=== PATIENT | female | born 1960 | race Caucasian/White ===

== ENCOUNTER 2018-02-06 16:10 | Observation (INO) ==
[2018-02-06] MEDS ORDERED: *HR* FentaNYL (PF) 100 MCG/2 ML VIAL IVP ONE ×2 (17:00→19:34)
[2018-02-06] MEDS ORDERED: Isovue-370 500 ML INFUS..BTL IV ONE (17:12)
[2018-02-06] MEDS ORDERED: 0.9 % Sodium Chloride 1,000 ML IVC ONE (17:13)
--- NOTE | 2018-02-06 17:18 | Emergency Department Note ---
Disposition Clinical Impression: Abdominal pain Qualifiers: Abdominal location: generalized Qualified Code(s): R10.84 - Generalized abdominal pain Disposition: Admitted As Inpatient Condition: Good Referrals: Paddy Estrada CNP [Primary Care Provider] - Abad Farrell MD [Family Provider] - Forms: ED Satisfaction Letter, Work/School Release Abdominal Pain HPI - General Chief Complaint: ED Abdominal Pain Stated Complaint: Colonoscopy this am in pain Time Seen by Provider: 02/06/18 16:43 Source: patient Mode of arrival: private vehicle Limitations: no limitations Nursing Notes Reviewed: Yes Vital Signs Reviewed: Yes - History of Present Illness HPI Narrative: 57-year-old female presents to the ER status post colonoscopy. Patient states that this morning she had a outpatient colonoscopy where they removed a few polyps. She states she went home around 11 AM she started having lower abdominal pain. Reports it is been constant ever since onset. She denies any fevers nausea vomiting or diarrhea. No dysuria or hematuria. Reports a past surgical history of a hysterectomy. She is not on any blood thinning medications. No other complaints. Pt Subjective Complaint: abdominal pain Onset (ago): hour(s) Consistency: constant Location: diffuse Pain Severity: severe Pain Scale: 8 Quality: stabbing Radiation: none Migration to: no migration Improves with: nothing Worsens with: nothing Context: recent surgery/procedure Associated symptoms: Reports: denies other symptoms Treatments prior to arrival: none - Related Data Home Medications Medication Instructions Recorded Confirmed Amitriptyline HCl 100 mg PO HS 02/06/18 02/06/18 Gabapentin [Neurontin] 1,200 mg PO HS 02/06/18 02/06/18 Gabapentin [Neurontin] 600 mg PO BID 02/06/18 02/06/18 Lisinopril [Zestril] 20 mg PO DAILY 02/06/18 02/06/18 Omeprazole [PriLOSEC] 40 mg PO DAILY 02/06/18 02/06/18 Tizanidine HCl 4 mg PO BID PRN 02/06/18 02/06/18 Allergies Allergy/AdvReac Type Severity Reaction Status Date / Time Penicillins Allergy Anaphylaxis Verified 07/12/17 12:22 All systems ED: reviewed and negative except as stated. Constitutional: Denies: fever Gastrointestinal: Reports: abdominal pain. Denies: nausea, vomiting, diarrhea Genitourinary: Denies: dysuria, hematuria Abdominal Pain PMH - Past Medical History Medical history: Reports: cancer, hypertension, TIA Psychiatric history: Reports: no psych history - Social History Smoking status: Current every day smoker Alcohol use: Reports: none Physical Exam - General Limitations: no limitations General appearance: alert, in no apparent distress - Head Head exam: atraumatic, normocephalic - Eye Eye exam: Present: normal appearance - ENT ENT exam: normal exam - Neck Neck exam: Present: normal inspection - Chest Chest inspection: Present: normal inspection, symmetric chest wall rise - Respiratory Respiratory exam: Present: normal lung sounds bilaterally - Cardiovascular Cardiovascular exam: Present: regular rate, normal rhythm, normal heart sounds - Abdominal Exam Abdominal exam: Present: tenderness (Diffuse tenderness. Voluntary guarding), guarding (Voluntary) - Extremities Exam Extremities exam: Present: normal inspection, full ROM - Expanded Upper Extremity Exam Shoulder exam: Present: normal inspection, full ROM Arm exam: Present: normal inspection, full ROM Elbow exam: Present: normal inspection, full ROM Forearm/Wrist exam: Present: normal inspection, full ROM Hand exam: Present: normal inspection, full ROM - Expanded Lower Extremity Exam Hip/Pelvis exam: Present: normal inspection, full ROM Upper leg exam: Present: normal inspection, full ROM Knee exam: Present: normal inspection, full ROM Lower leg exam: Present: normal inspection, full ROM Ankle exam: Present: normal inspection, full ROM Foot/toe exam: Present: normal inspection, full ROM - Skin Skin exam: Present: warm, dry Course Course Narrative: Patient seen and examined. Low-grade temp. Voluntary guarding on exam. Concern for perforation given her recent attention mentation. Plan for CT as well as labs. Cipro and Flagyl for antibiotics and fentanyl for pain. - Reevaluation(s) Reevaluation #1: Discussed imaging labs with the patient and family present. Patient agreeable with plan. Vital Signs Temperature 99.9 F H 02/06/18 16:16 Pulse Rate 86 02/06/18 16:16 Respiratory Rate 16 02/06/18 16:16 Blood Pressure 135/77 02/06/18 16:16 O2 Sat by Pulse Oximetry 95 02/06/18 16:16 Temperature 99.9 F H 02/06/18 16:16 Pulse Rate 80 02/06/18 19:26 Respiratory Rate 16 02/06/18 19:26 Blood Pressure 154/89 02/06/18 19:26 O2 Sat by Pulse Oximetry 95 02/06/18 19:26 Oxygen Delivery Oxygen Delivery Room Air Abdominal Pain - MDM Narrative Medical decision making narrative: 57-year-old female presents with abdominal pain after recent colonoscopy this morning. CT scan obtained demonstrating no findings of pneumoperitoneum as per radiology read. Evaluated by gastroenterology in the Department who recommended admission for observation. She is to be kept nothing by mouth and treated with Cipro and Flagyl. Admitted to the hospitalist service with gastrology consultation. - Lab Data Lab results reviewed: Yes I reviewed the patient's lab results. Result diagrams: 02/06/18 17:22 02/06/18 17:22 Lab Results 02/06/18 02/06/18 02/06/18 Range/Units 17:22 17:22 17:22 WBC 13.2 H (4.3-11.1) K/mcL RBC 5.31 H (3.82-4.97) M/mcL Hgb 15.3 (11.5-15.4) g/dL Hct 45.4 H (35.3-44.9) % MCV 85.5 (83.0-100.0) fL MCH 28.8 (28.0-33.3) pg MCHC 33.7 (31.6-35.5) g/dL RDW 14.5 (11.5-14.5) % Plt Count 244 (140-400) K/mcL MPV 9.4 (9.4-12.4) fL Immature Gran % 0.3 (0-4) % Seg Neutrophils % 74.6 % Lymphocytes % 20.4 % Monocytes % 4.0 % Eosinophils % 0.5 % Basophils % 0.2 % Neutrophils # 9.9 H (1.6-8.9) K/mcL Lymphocytes # 2.7 (0.6-4.6) K/mcL Monocytes # 0.5 (0.0-1.3) K/mcL Eosinophils # 0.1 (0.0-0.6) K/mcL Basophils # 0.0 (0.0-0.2) K/mcL PT 12.4 H (9.4-12.1) Seconds INR 1.1 Sodium 139 (136-145) mEq/L Potassium 3.5 (3.5-5.1) mEq/L Chloride 107 (98-107) mEq/L Carbon Dioxide 26 (23-29) mEq/L BUN 10 (6-20) mg/dL Creatinine 0.74 (0.60-1.20) mg/dL Est GFR ( Amer) > 60 (> 60) Est GFR (Non-Af Amer) > 60 (> 60) BUN/Creatinine Ratio 14 (6-26) Glucose 96 (70-105) mg/dL Calculated Osmolality 287 (280-300) Calcium 9.8 (8.6-10.3) mg/dL Total Bilirubin 0.5 (0.3-1.0) mg/dL Direct Bilirubin 0.1 (0.0-0.2) mg/dL Indirect Bilirubin 0.4 (0.0-1.2) mg/dL AST 13 (13-39) Units/L ALT 13 (7-52) Units/L Alkaline Phosphatase 83 (34-104) Units/L Serum Total Protein 7.0 (6.4-8.9) g/dL Albumin 4.2 (3.5-5.7) g/dL Globulin 2.8 (2.4-3.5) g/dL Albumin/Globulin Ratio 1.5 (1.1-2.2) Lipase 21 (11-82) Units/L Urine Color (Yellow) Urine Clarity (Clear) Urine pH (5.0-8.0) pH Units Ur Specific [place] (1.010-1.025) Urine Protein (Neg-Trace) mg/dL Urine Glucose (UA) (Normal) mg/dL Urine Ketones (Negative) mg/dL Urine Blood (Negative) Urine Nitrite (Negative) Urine Bilirubin (Negative) Urine Urobilinogen (Normal) mg/dL Ur Leukocyte Esterase (Negative) Urine Microscopic RBC (0-3) per hpf Urine Microscopic WBC (0-3) per hpf Ur Squamous Epith Cells (None-Few) per lpf Urine Bacteria (None-Few) per hpf Hyaline Casts (None-Few) per lpf Ur Culture Indicated? (NO) 02/06/18 Range/Units 19:04 WBC (4.3-11.1) K/mcL RBC (3.82-4.97) M/mcL Hgb (11.5-15.4) g/dL Hct (35.3-44.9) % MCV (83.0-100.0) fL MCH (28.0-33.3) pg MCHC (31.6-35.5) g/dL RDW (11.5-14.5) % Plt Count (140-400) K/mcL MPV (9.4-12.4) fL Immature Gran % (0-4) % Seg Neutrophils % % Lymphocytes % % Monocytes % % Eosinophils % % Basophils % % Neutrophils # (1.6-8.9) K/mcL Lymphocytes # (0.6-4.6) K/mcL Monocytes # (0.0-1.3) K/mcL Eosinophils # (0.0-0.6) K/mcL Basophils # (0.0-0.2) K/mcL PT (9.4-12.1) Seconds INR Sodium (136-145) mEq/L Potassium (3.5-5.1) mEq/L Chloride (98-107) mEq/L Carbon Dioxide (23-29) mEq/L BUN (6-20) mg/dL Creatinine (0.60-1.20) mg/dL Est GFR ( Amer) (> 60) Est GFR (Non-Af Amer) (> 60) BUN/Creatinine Ratio (6-26) Glucose (70-105) mg/dL Calculated Osmolality (280-300) Calcium (8.6-10.3) mg/dL Total Bilirubin (0.3-1.0) mg/dL Direct Bilirubin (0.0-0.2) mg/dL Indirect Bilirubin (0.0-1.2) mg/dL AST (13-39) Units/L ALT (7-52) Units/L Alkaline Phosphatase (34-104) Units/L Serum Total Protein (6.4-8.9) g/dL Albumin (3.5-5.7) g/dL Globulin (2.4-3.5) g/dL Albumin/Globulin Ratio (1.1-2.2) Lipase (11-82) Units/L Urine Color Yellow (Yellow) Urine Clarity Clear (Clear) Urine pH 6.0 (5.0-8.0) pH Units Ur Specific [place] 1.024 (1.010-1.025) Urine Protein Negative (Neg-Trace) mg/dL Urine Glucose (UA) Normal (Normal) mg/dL Urine Ketones Negative (Negative) mg/dL Urine Blood Negative (Negative) Urine Nitrite Negative (Negative) Urine Bilirubin Negative (Negative) Urine Urobilinogen Normal (Normal) mg/dL Ur Leukocyte Esterase Trace H (Negative) Urine Microscopic RBC 0-3 (0-3) per hpf Urine Microscopic WBC 5-15 H (0-3) per hpf Ur Squamous Epith Cells Many H (None-Few) per lpf Urine Bacteria Few (None-Few) per hpf Hyaline Casts None Seen (None-Few) per lpf Ur Culture Indicated? NO. A (NO) - Radiology Data Radiology results reviewed: Yes I reviewed the patient's radiology results. Abdomen/Pelvis CT 02/06/18 17:12 IMPRESSION: 1.6 cm linear metallic foreign body within the cecum ; correlate with interventional history. No gross pneumoperitoneum. Patchy heterogeneous and ground-glass opacity at the lung bases, which can reflect atelectasis, pneumonitis, or edema. D/ / Eliel Honeycutt MD / Eliel Honeycutt MD Interpreting Provider: Eliel Honeycutt MD S.B.A.R. - S.B.A.R. Situation: Demographics, MOA Background: Presenting Complaint, Relevant PMH, Meds, & Allergies Assessment: Course and respsone to treatment, Exam Concerns, Patient/Family Expectation, Pertinant Lab Results Recommendation: Barrier(s) to disposition, Recommendation based on pending studies, treatments, or consults S.B.A.R. Report Given to: Dr. Eduardo
[2018-02-06 17:33] LABS: Basophils % 0.2 %; Eosinophils # 0.1 K/mcL (0.0-0.6); Eosinophils % 0.5 %; Hematocrit 45.4 % (35.3-44.9); Hemoglobin 15.3 g/dL (11.5-15.4); Immature Granulocytes % 0.3 % (0-4); Lymphocytes # 2.7 K/mcL (0.6-4.6); Lymphocytes % 20.4 %; Mean Corpuscular HGB Conc 33.7 g/dL (31.6-35.5); Mean Corpuscular Hemoglobin 28.8 pg (28.0-33.3); Mean Corpuscular Volume 85.5 fL (83.0-100.0); Mean Platelet Volume 9.4 fL (9.4-12.4); Monocytes # 0.5 K/mcL (0.0-1.3); Neutrophils # 9.9 K/mcL (1.6-8.9); Platelet Count 244 K/mcL (140-400); Red Blood Count 5.31 M/mcL (3.82-4.97); Red Cell Distribution Width 14.5 % (11.5-14.5); Segmented Neutrophils % 74.6 %
[2018-02-06 17:40] LABS: INR 1.1; Prothrombin Time 12.4 Seconds (9.4-12.1)
[2018-02-06 17:58] LABS: Alanine Aminotransferase 13 Units/L (7-52); Albumin 4.2 g/dL (3.5-5.7); Albumin/Globulin Ratio 1.5 (1.1-2.2); Alkaline Phosphatase 83 Units/L (34-104); Aspartate Amino Transferase 13 Units/L (13-39); BUN/Creatinine Ratio 14 (6-26); Bilirubin,Direct 0.1 mg/dL (0.0-0.2); Bilirubin,Indirect 0.4 mg/dL (0.0-1.2); Bilirubin,Total 0.5 mg/dL (0.3-1.0); Blood Urea Nitrogen 10 mg/dL (6-20); Calcium 9.8 mg/dL (8.6-10.3); Carbon Dioxide 26 mEq/L (23-29); Chloride 107 mEq/L (98-107); Globulin 2.8 g/dL (2.4-3.5); Glucose 96 mg/dL (70-105); Lipase 21 Units/L (11-82); Osmolality,Calculated 287 (280-300); Potassium 3.5 mEq/L (3.5-5.1); Sodium 139 mEq/L (136-145); eGFR For Non-African Americans > 60 (> 60)
[2018-02-06] MEDS ORDERED: MetroNIDAZOLE 500 MG/100 ML 500 MG/100 ML BAG IVPB ONE (18:07)
--- NOTE | 2018-02-06 18:59 | Event Note ---
Date of Encounter: 02/06/18 Time of Encounter: 18:45 Patient had a 12 mm cecal polyp removed this morning. After going home she started having lower abdominal pain so asked to come the ER. On examination does has significant tenderness in the lower abdomen. Per patient she is passing some flatus. White count is 13.2. She has a low-grade fever of 99.9. CT scan is negative for any free air. 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 Recommendation: Strict nothing by mouth. IV antibiotics including Cipro and Flagyl. Full consult to follow and will follow along the pt .
[2018-02-06 19:13] LABS: Bilirubin,Urine Negative (Negative); Blood,Urine Negative (Negative); Clarity,Urine Clear (Clear); Color,Urine Yellow (Yellow); Glucose,Urine (UA) Normal (Normal); Ketones,Urine Negative (Negative); Leukocyte Esterase,Urine Trace (Negative); Nitrite,Urine Negative (Negative); Protein,Urine Negative (Neg-Trace); Specific Gravity,Urine 1.024 (1.010-1.025); Urobilinogen,Urine Normal (Normal)
[2018-02-06 19:15] LABS: Bacteria,Urine Few per hpf (None-Few); Hyaline Casts,Urine None Seen per lpf (None-Few); RBC,Urine 0-3 per hpf (0-3); Squamous Epithelial Cell,Urine Many per lpf (None-Few)
[2018-02-06] MEDS ORDERED: Pantoprazole 40 MG VIAL IVP ONE (19:30)
--- NOTE | 2018-02-06 19:56 | Internal Med History&Physical ---
<Terry Esteban - Last Filed: 02/06/18 22:05> Date of Encounter: 02/06/18 Time of Encounter: 19:54 Internal Medicine - H&P: HPI Chief complaint: Abdominal pain Admitted From: Home History of present illness: Ms. Barney is a 57 year old female with a past medical history of chronic back pain, TIA, hypertension, GERD, and tobacco dependence who presented complaining of abdominal pain after an outpatient colonoscopy this morning. According to the endoscopy note, a 4 mm nonbleeding sessile polyp was found in the transverse colon and a 12 mm nonbleeding sessile polyp was found in the cecum, both of which were removed with a hot snare. One hemostatic clip was successfully placed in the cecum and there was no bleeding at the end of the procedure. The colonoscopy was performed without difficulty and the patient tolerated the procedure well. She was able to eat a sandwich without difficulty shortly after the procedure. She went home around 11 AM and started having constant, sharp right lower quadrant abdominal pain. Pain does not radiate, nothing makes it better, and abdominal palpation makes it worse. Patient reports she is unable to stand/walk secondary to pain. She called Dr. Bustillo regarding her symptoms recommended she be evaluated in the emergency department. Patient denies associated fever, chest pain, shortness of breath, nausea, vomiting, diarrhea, hematochezia, dysuria, hematuria, or home blood thinner use. Past Med Surg Social Fam HX - Past Medical History Medical history: cancer (Ovarian), hypertension, TIA Additional medical history: Chronic back pain, peripheral neuropathy Psychiatric history: no psych history - Past Surgical History Surgical History: hysterectomy, other Additional surgical history: back surgery - Social History Smoking Status: Current every day smoker Smokeless Tobacco Status: No Alcohol use: none Drug use: none Current living situation: Home, With Family Activity Level: Independent ambulation Recent Out of Country Travel Within the Last 8 Weeks: No Exposure or Possible Exposure to Illness During Travel: No - Family History Mother Living Status: Hx Family Cardiac Disorders: Yes (HTN, Brain aneurysm) Hx Family Endocrine Disorder: Yes (DM) Hx Family Medical Disorders: Yes (Polio) Father Living Status: Hx Family Cardiac Disorders: Yes ([place], CABG) Hx Family Cancer: Yes (Lung, Colon at age 50) Internal Medicine - H&P: Meds Gabapentin [Neurontin] 1,200 mg PO HS 02/06/18 [History] Gabapentin [Neurontin] 600 mg PO BID 02/06/18 [History] Omeprazole [PriLOSEC] 40 mg PO DAILY 02/06/18 [History] RX: Amitriptyline HCl 100 mg PO HS 02/06/18 [History] RX: Lisinopril [Zestril] 20 mg PO DAILY 02/06/18 [History] RX: Tizanidine HCl 4 mg PO BID PRN 02/06/18 [History] 3 Allergy/AdvReac Type Severity Reaction Status Date / Time Penicillins Allergy Anaphylaxis Verified 07/12/17 12:22 All Systems PM: A 10-system review of systems was performed and is negative for pertinent findings except as documented above in the HPI. - Constitutional Constitutional: chills, fever(s) (Low-grade), no fatigue, no malaise, no weakness, no weight gain, no weight loss - EENT Eyes: no blurry vision, no diplopia Nose, mouth and throat: no sinus pain, no sore throat - Cardiovascular Cardiovascular ROS IM: no chest pain, no dyspnea, no edema - Respiratory Respiratory: no cough, no hemoptysis, no dyspnea on exertion - Gastrointestinal Gastrointestinal: abdominal pain, no bloating, no constipation, no diarrhea, no heartburn, no hematemesis, no hematochezia, no melena, no nausea, no vomiting - Genitourinary Genitourinary: no dysuria, no hematuria, no urinary frequency, no urinary urgency - Musculoskeletal Musculoskeletal ROS IM: back pain (Chronic), no arthralgias, no numbness, no tingling - Integumentary Integumentary IM: no erythema, no new lesions, no rash - Neurological Neurological ROS: no confusion, no numbness, no weakness - Psychiatric Psychiatric: no anxiety, no depression - Endocrine Endocrine IM: no fatigue, no polydipsia, no polyphagia, no polyuria - Constitutional Vitals: Temp Pulse Resp BP Pulse Ox 99.9 F H 79 16 148/79 94 02/06/18 16:16 02/06/18 19:53 02/06/18 19:53 02/06/18 19:53 02/06/18 19:53 General appearance: Present: cooperative, mild distress, A&O X 3, pleasant, no acute distress, answers questions appropriately - Head Head exam: Present: atraumatic, normocephalic - Eye Eye exam: Present: PERRL, conjuntiva pink, sclera anicteric Pupils: Present: PERRL - ENT ENT exam: Present: mucous membranes dry, normal oropharynx - Neck Neck exam general surgery: Present: supple, trachea midline. Absent: lymphadenopathy - Respiratory Respiratory exam: Present: CTAB. Absent: accessory muscle use, rales, rhonchi, wheezes - Cardiovascular Cardiovascular exam: Present: RRR, +S1, +S2. Absent: diastolic murmur, gallop, rubs, systolic murmur - GI/Abdominal GI/Abdominal exam: Present: guarding (Involuntary), normal bowel sounds, soft, tenderness (Diffuse, worse in right lower quadrant and suprapubic region), no peritoneal signs. Absent: distended - Extremities Exam Extremities exam: Present: warm, radial pulses palpable and symmetrical. Absent : calf tenderness, cyanotic, pedal edema - Back Exam Back exam: Present: normal inspection, tenderness (L-spine, chronic). Absent: paraspinal tenderness - Neurological Exam Neurological exam: Present: CN II-XII intact, oriented X3, no focal deficits. Absent: pronater drift, facial droop, speech deficit - Psychiatric Psychiatric exam: Present: normal affect, normal mood - Skin Skin exam: Present: dry, intact, warm Internal Med - H&P Results - Labs CBC & Chem 7: 02/06/18 17:22 02/06/18 17:22 Labs: Short CBC 02/06/18 Range/Units 17:22 WBC 13.2 H (4.3-11.1) K/mcL Hgb 15.3 (11.5-15.4) g/dL Hct 45.4 H (35.3-44.9) % Plt Count 244 (140-400) K/mcL Neutrophils # 9.9 H (1.6-8.9) K/mcL BMP 02/06/18 17:22 Sodium 139 Potassium 3.5 Chloride 107 Carbon Dioxide 26 BUN 10 Creatinine 0.74 Glucose 96 Calcium 9.8 Liver Function 02/06/18 Range/Units 17:22 Total Bilirubin 0.5 (0.3-1.0) mg/dL Direct Bilirubin 0.1 (0.0-0.2) mg/dL AST 13 (13-39) Units/L ALT 13 (7-52) Units/L Alkaline Phosphatase 83 (34-104) Units/L Albumin 4.2 (3.5-5.7) g/dL Urine 02/06/18 Range/Units 19:04 Urine Color Yellow (Yellow) Urine Clarity Clear (Clear) Urine pH 6.0 (5.0-8.0) pH Units Ur Specific [place] 1.024 (1.010-1.025) Urine Protein Negative (Neg-Trace) mg/dL Urine Glucose (UA) Normal (Normal) mg/dL - Pulse Oximetry Interpretation Digit-Finger O2 Sat by Pulse Oximetry: 94 (On room air) - Impressions ITS Impressions Abdomen/Pelvis CT 02/06/18 17:12 IMPRESSION: 1.6 cm linear metallic foreign body within the cecum ; correlate with interventional history. No gross pneumoperitoneum. Patchy heterogeneous and ground-glass opacity at the lung bases, which can reflect atelectasis, pneumonitis, or edema. D/ / Eliel Honeycutt MD / Eliel Honeycutt MD Interpreting Provider: Eliel Honeycutt MD - Assessment and plan (1) Hypertension Current Visit: No Status: Chronic Assessment and plan: Continue home Lisinopril Hydralazine ordered prn Qualifiers: Hypertension type: essential hypertension Qualified Code(s): I10 - Essential (primary) hypertension (2) Chronic back pain Current Visit: Yes Status: Chronic Assessment and plan: Continue home meds Qualifiers: Back pain location: low back pain Back pain laterality: bilateral Sciatica presence: with sciatica Sciatica laterality: bilateral sciatica Qualified Code(s): M54.42 - Lumbago with sciatica, left side; M54.41 - Lumbago with sciatica, right side; G89.29 - Other chronic pain (3) Tobacco dependence Current Visit: No Status: Chronic Assessment and plan: Nicotine patch ordered Tobacco cessation discussed (4) DVT prophylaxis Current Visit: Yes Status: Acute Assessment and plan: EPCDs (5) Status post colonoscopy with polypectomy Current Visit: Yes Status: Acute Assessment and plan: Patient with Postpolypectomy electrocoagulation syndrome According to the endoscopy note, a 4 mm nonbleeding sessile polyp was found in the transverse colon and a 12 mm nonbleeding sessile polyp was found in the cecum, both of which were removed with a hot snare. One hemostatic clip was successfully placed in the cecum and there was no bleeding at the end of the procedure. The colonoscopy was performed without difficulty and the patient tolerated the procedure well. CT abdomen/pelvis without contrast revealed 1.6 cm linear metallic foreign body within the cecum ; correlate with interventional history. No gross pneumoperitoneum. Patient has low-grade temperature 99.9 F, chills, leukocytosis WBC 13.2, and abdominal pain with guarding Treatment is conservative, consisting of intravenous fluids, nothing by mouth, bedrest, and antibiotics until symptoms improve Continue empiric Cipro and Flagyl IV Gastroenterology consulted by ED physician Consider transitioning to clear liquid diet and oral antibiotics once condition improves - Time Spent With Patient Total time spent is greater than 50% in coordination of care (as documented) at patient's floor/unit and/or counseling patient: <Adrian Yo P - Last Filed: 02/06/18 23:14> Date of Encounter: 02/06/18 Internal Medicine - H&P: HPI History of present illness: Ms. Barney is a 57 year old female All Systems PM: A 10-system review of systems was performed and is negative for pertinent findings except as documented above in the HPI. - Constitutional Vitals: Temp Pulse Resp BP Pulse Ox 99.0 F 83 16 162/84 92 02/06/18 22:57 02/06/18 22:57 02/06/18 22:57 02/06/18 22:57 02/06/18 22:57 Internal Med - H&P Results - Labs CBC & Chem 7: 02/06/18 17:22 02/06/18 17:22 - Attending Attestation I have seen the patient and performed my own history and physical examination. I have discussed the case with the admitting resident, and I agree with his assessment and plan of care as documented in his H&P. Briefly, patient admitted for abdominal pain secondray to postpolypectomy electrocoagulation syndrome after colonoscopy earlier today. She has low-grade fever, chills, and leukocytosis. GI sent her to ED, and they agree to follow patient with us. They recommended treating with empiric cipro and flagyl. Will admit for observation and continue IVF, continue antibiotics, and keep NPO. Continue IV PPI and zofran IV PRN nausea/vomiting. Will consult GI in AM. Repeat labwork in AM. - Assessment and plan (1) DVT prophylaxis Current Visit: Yes Status: Acute (2) Hypertension Current Visit: No Status: Chronic Qualifiers: Hypertension type: essential hypertension Qualified Code(s): I10 - Essential (primary) hypertension (3) Tobacco dependence Current Visit: No Status: Chronic (4) Chronic back pain Current Visit: Yes Status: Chronic Qualifiers: Back pain location: low back pain Back pain laterality: bilateral Sciatica presence: with sciatica Sciatica laterality: bilateral sciatica Qualified Code(s): M54.42 - Lumbago with sciatica, left side; M54.41 - Lumbago with sciatica, right side; G89.29 - Other chronic pain (5) Status post colonoscopy with polypectomy Current Visit: Yes Status: Acute - Time Spent With Patient Total time spent is greater than 50% in coordination of care (as documented) at patient's floor/unit and/or counseling patient:
--- NOTE | 2018-02-06 20:15 | Emergency Department Note ---
Disposition Clinical Impression: Abdominal pain Disposition: Admitted As Inpatient Condition: Fair Referrals: Paddy Estrada CNP [Primary Care Provider] - Abad Farrell MD [Family Provider] - Abdominal Pain HPI - General Chief Complaint: ED Abdominal Pain Stated Complaint: Colonoscopy this am in pain Time Seen by Provider: 02/06/18 16:43 Source: patient Mode of arrival: private vehicle Limitations: no limitations Nursing Notes Reviewed: Yes Vital Signs Reviewed: Yes - History of Present Illness Pt Subjective Complaint: abdominal pain Location: diffuse Pain Severity: severe Pain Scale: 8 Quality: stabbing Migration to: no migration Improves with: nothing Worsens with: nothing Context: recent surgery/procedure Associated symptoms: Reports: denies other symptoms - Related Data Home Medications Medication Instructions Recorded Confirmed Amitriptyline HCl 100 mg PO HS 02/06/18 02/06/18 Gabapentin [Neurontin] 1,200 mg PO HS 02/06/18 02/06/18 Gabapentin [Neurontin] 600 mg PO BID 02/06/18 02/06/18 Lisinopril [Zestril] 20 mg PO DAILY 02/06/18 02/06/18 Omeprazole [PriLOSEC] 40 mg PO DAILY 02/06/18 02/06/18 Tizanidine HCl 4 mg PO BID PRN 02/06/18 02/06/18 Allergies Allergy/AdvReac Type Severity Reaction Status Date / Time Penicillins Allergy Anaphylaxis Verified 07/12/17 12:22 Constitutional: Denies: fever Gastrointestinal: Reports: abdominal pain. Denies: nausea, vomiting, diarrhea Genitourinary: Denies: dysuria, hematuria Abdominal Pain PMH - Past Medical History Medical history: Reports: cancer, hypertension, TIA Psychiatric history: Reports: no psych history - Social History Smoking status: Current every day smoker Alcohol use: Reports: none Physical Exam - General Limitations: no limitations General appearance: alert, in no apparent distress Course Vital Signs Temperature 99.9 F H 02/06/18 16:16 Pulse Rate 86 02/06/18 16:16 Respiratory Rate 16 02/06/18 16:16 Blood Pressure 135/77 02/06/18 16:16 O2 Sat by Pulse Oximetry 95 02/06/18 16:16 Temperature 99.9 F H 02/06/18 16:16 Pulse Rate 79 02/06/18 19:53 Respiratory Rate 16 02/06/18 19:53 Blood Pressure 148/79 02/06/18 19:53 O2 Sat by Pulse Oximetry 94 02/06/18 19:53 Oxygen Delivery Oxygen Delivery Room Air Abdominal Pain - Lab Data Result diagrams: 02/06/18 17:22 02/06/18 17:22 Lab Results 02/06/18 02/06/18 02/06/18 Range/Units 17:22 17:22 17:22 WBC 13.2 H (4.3-11.1) K/mcL RBC 5.31 H (3.82-4.97) M/mcL Hgb 15.3 (11.5-15.4) g/dL Hct 45.4 H (35.3-44.9) % MCV 85.5 (83.0-100.0) fL MCH 28.8 (28.0-33.3) pg MCHC 33.7 (31.6-35.5) g/dL RDW 14.5 (11.5-14.5) % Plt Count 244 (140-400) K/mcL MPV 9.4 (9.4-12.4) fL Immature Gran % 0.3 (0-4) % Seg Neutrophils % 74.6 % Lymphocytes % 20.4 % Monocytes % 4.0 % Eosinophils % 0.5 % Basophils % 0.2 % Neutrophils # 9.9 H (1.6-8.9) K/mcL Lymphocytes # 2.7 (0.6-4.6) K/mcL Monocytes # 0.5 (0.0-1.3) K/mcL Eosinophils # 0.1 (0.0-0.6) K/mcL Basophils # 0.0 (0.0-0.2) K/mcL PT 12.4 H (9.4-12.1) Seconds INR 1.1 Sodium 139 (136-145) mEq/L Potassium 3.5 (3.5-5.1) mEq/L Chloride 107 (98-107) mEq/L Carbon Dioxide 26 (23-29) mEq/L BUN 10 (6-20) mg/dL Creatinine 0.74 (0.60-1.20) mg/dL Est GFR ( Amer) > 60 (> 60) Est GFR (Non-Af Amer) > 60 (> 60) BUN/Creatinine Ratio 14 (6-26) Glucose 96 (70-105) mg/dL Calculated Osmolality 287 (280-300) Calcium 9.8 (8.6-10.3) mg/dL Total Bilirubin 0.5 (0.3-1.0) mg/dL Direct Bilirubin 0.1 (0.0-0.2) mg/dL Indirect Bilirubin 0.4 (0.0-1.2) mg/dL AST 13 (13-39) Units/L ALT 13 (7-52) Units/L Alkaline Phosphatase 83 (34-104) Units/L Serum Total Protein 7.0 (6.4-8.9) g/dL Albumin 4.2 (3.5-5.7) g/dL Globulin 2.8 (2.4-3.5) g/dL Albumin/Globulin Ratio 1.5 (1.1-2.2) Lipase 21 (11-82) Units/L Urine Color (Yellow) Urine Clarity (Clear) Urine pH (5.0-8.0) pH Units Ur Specific [place] (1.010-1.025) Urine Protein (Neg-Trace) mg/dL Urine Glucose (UA) (Normal) mg/dL Urine Ketones (Negative) mg/dL Urine Blood (Negative) Urine Nitrite (Negative) Urine Bilirubin (Negative) Urine Urobilinogen (Normal) mg/dL Ur Leukocyte Esterase (Negative) Urine Microscopic RBC (0-3) per hpf Urine Microscopic WBC (0-3) per hpf Ur Squamous Epith Cells (None-Few) per lpf Urine Bacteria (None-Few) per hpf Hyaline Casts (None-Few) per lpf Ur Culture Indicated? (NO) 02/06/18 Range/Units 19:04 WBC (4.3-11.1) K/mcL RBC (3.82-4.97) M/mcL Hgb (11.5-15.4) g/dL Hct (35.3-44.9) % MCV (83.0-100.0) fL MCH (28.0-33.3) pg MCHC (31.6-35.5) g/dL RDW (11.5-14.5) % Plt Count (140-400) K/mcL MPV (9.4-12.4) fL Immature Gran % (0-4) % Seg Neutrophils % % Lymphocytes % % Monocytes % % Eosinophils % % Basophils % % Neutrophils # (1.6-8.9) K/mcL Lymphocytes # (0.6-4.6) K/mcL Monocytes # (0.0-1.3) K/mcL Eosinophils # (0.0-0.6) K/mcL Basophils # (0.0-0.2) K/mcL PT (9.4-12.1) Seconds INR Sodium (136-145) mEq/L Potassium (3.5-5.1) mEq/L Chloride (98-107) mEq/L Carbon Dioxide (23-29) mEq/L BUN (6-20) mg/dL Creatinine (0.60-1.20) mg/dL Est GFR ( Amer) (> 60) Est GFR (Non-Af Amer) (> 60) BUN/Creatinine Ratio (6-26) Glucose (70-105) mg/dL Calculated Osmolality (280-300) Calcium (8.6-10.3) mg/dL Total Bilirubin (0.3-1.0) mg/dL Direct Bilirubin (0.0-0.2) mg/dL Indirect Bilirubin (0.0-1.2) mg/dL AST (13-39) Units/L ALT (7-52) Units/L Alkaline Phosphatase (34-104) Units/L Serum Total Protein (6.4-8.9) g/dL Albumin (3.5-5.7) g/dL Globulin (2.4-3.5) g/dL Albumin/Globulin Ratio (1.1-2.2) Lipase (11-82) Units/L Urine Color Yellow (Yellow) Urine Clarity Clear (Clear) Urine pH 6.0 (5.0-8.0) pH Units Ur Specific [place] 1.024 (1.010-1.025) Urine Protein Negative (Neg-Trace) mg/dL Urine Glucose (UA) Normal (Normal) mg/dL Urine Ketones Negative (Negative) mg/dL Urine Blood Negative (Negative) Urine Nitrite Negative (Negative) Urine Bilirubin Negative (Negative) Urine Urobilinogen Normal (Normal) mg/dL Ur Leukocyte Esterase Trace H (Negative) Urine Microscopic RBC 0-3 (0-3) per hpf Urine Microscopic WBC 5-15 H (0-3) per hpf Ur Squamous Epith Cells Many H (None-Few) per lpf Urine Bacteria Few (None-Few) per hpf Hyaline Casts None Seen (None-Few) per lpf Ur Culture Indicated? NO. A (NO) Attestation Statement - Attestation Attestation: I, Yousif Conway, examined this patient and my medical decision-making was reviewed with the [employer]/PA/Advanced Practice Nurse/Resident Physician. I agree with the documented findings, disposition and treatment plan as described except to the extent set forth below. 57-year-old female presents emergency Department with concerns of abdominal pain. She had a colonoscopy performed to sit today by Dr. Bustillo, where she had 2 polyps removed and another area banded. Patient returned home and started to have significant pain in the abdomen. She called Dr. Bustillo regarding her symptoms recommended she be evaluated in the emergency department. Patient had generalized tenderness to the abdomen. She had a mildly elevated temperature but was not tachycardic. Patient had a mildly elevated leukocytosis. CT of the abdomen and pelvis did not show evidence of perforation. Dr. Bustillo recommended giving the patient ciprofloxacin and Flagyl and admission to the hospital.
[2018-02-06] MEDS ORDERED: OXYCODONE Oral CONC 10 MG/0.5 ML ORAL.SYG SL PRN (21:36)
[2018-02-06] MEDS ORDERED: Acetaminophen 325 MG TABLET PO PRN (21:36)
[2018-02-06] MEDS ORDERED: Ketorolac 15 MG/ML VIAL IVP PRN (21:36)
[2018-02-06] MEDS ORDERED: Naloxone 0.4 MG/ML INJ IVP PRN (21:36)
[2018-02-06] MEDS: Lisinopril 20 MG TABLET PO SCH (22:00)
[2018-02-06] MEDS: Gabapentin 400 MG CAPSULE PO SCH (22:00)
[2018-02-06] MEDS: Nicotine 7 MG PATCH.TD24 TD SCH (22:00)
[2018-02-06] MEDS: Ondansetron 4 MG/2 ML VIAL IVP PRN (22:00)
[2018-02-06] MEDS: OXYCODONE Oral CONC 10 MG/0.5 ML ORAL.SYG SL PRN (22:01)
[2018-02-06] MEDS: 0.9 % Sodium Chloride 1,000 ML IVC SCH (22:01)
[2018-02-07] MEDS: MetroNIDAZOLE 500 MG/100 ML 500 MG/100 ML BAG IVPB SCH ×3 (03:26→20:46)
[2018-02-07] MEDS: Pantoprazole 40 MG VIAL IVP SCH ×2 (05:47→17:33)
[2018-02-07 06:54] LABS: Basophils % 0.3 %; Eosinophils # 0.1 K/mcL (0.0-0.6); Hematocrit 41.2 % (35.3-44.9); Hemoglobin 13.8 g/dL (11.5-15.4); Immature Granulocytes % 0.3 % (0-4); Lymphocytes # 3.2 K/mcL (0.6-4.6); Lymphocytes % 40.4 %; Mean Corpuscular HGB Conc 33.5 g/dL (31.6-35.5); Mean Corpuscular Hemoglobin 29.4 pg (28.0-33.3); Mean Corpuscular Volume 87.8 fL (83.0-100.0); Mean Platelet Volume 9.6 fL (9.4-12.4); Monocytes # 0.5 K/mcL (0.0-1.3); Monocytes % 6.2 %; Neutrophils # 4.1 K/mcL (1.6-8.9); Platelet Count 217 K/mcL (140-400); Red Blood Count 4.69 M/mcL (3.82-4.97); Red Cell Distribution Width 14.3 % (11.5-14.5); Segmented Neutrophils % 51.8 %
[2018-02-07 07:17] LABS: BUN/Creatinine Ratio 10 (6-26); Blood Urea Nitrogen 7 mg/dL (6-20); Calcium 8.7 mg/dL (8.6-10.3); Carbon Dioxide 25 mEq/L (23-29); Chloride 113 mEq/L (98-107); Glucose 85 mg/dL (70-105); Osmolality,Calculated 293 (280-300); Potassium 3.5 mEq/L (3.5-5.1); Sodium 143 mEq/L (136-145); eGFR For Non-African Americans > 60 (> 60)
[2018-02-07] MEDS: Gabapentin 300 MG CAPSULE PO SCH ×2 (08:04→16:47)
[2018-02-07] MEDS: Lisinopril 20 MG TABLET PO SCH (08:05)
[2018-02-07] MEDS: OXYCODONE Oral CONC 10 MG/0.5 ML ORAL.SYG SL PRN ×4 (08:05→20:44)
[2018-02-07] MEDS: 0.9 % Sodium Chloride 1,000 ML IVC SCH (08:09)
--- NOTE | 2018-02-07 10:24 | Gastroenterology Consult Note ---
<Taty Valles - Last Filed: 02/07/18 13:01> Date of Encounter: 02/07/18 Time of Encounter: 09:45 - Assessment and plan (1) Abdominal pain Status: Acute Assessment and plan: 57 year old female who is status post colonoscopy with removal of 12 mm polyp in the cecum. She has continued lower abdominal pain. CT was negative for perforation. Will continue IV antibiotics for colitis, keep NPO, will advance diet when pain is improved. Qualifiers: Abdominal location: lower abdomen, unspecified Qualified Code(s): R10.30 - Lower abdominal pain, unspecified (2) Status post colonoscopy with polypectomy Status: Acute - Time Spent With Patient Total time spent is greater than 50% in coordination of care (as documented) at patient's floor/unit and/or counseling patient: GI History of Present Illness - Data of Consult Patient: known to practice within the last 3 years Consult date: 02/07/18 Requesting Physician: Adrian Yo - Consult Narrative Reason for consult: abdominal pain s/p colonoscopy History of present illness: Ms. Barney is a 57 year old female with a past medical history of chronic back pain, TIA, hypertension, GERD, and tobacco dependence who presented complaining of abdominal pain after an outpatient colonoscopy yesterday morning by Dr Bustillo. 4 mm nonbleeding sessile polyp was found in the transverse colon and a 12 mm nonbleeding sessile polyp was found in the cecum, both of which were removed with a hot snare. One hemostatic clip was successfully placed in the cecum and there was no bleeding at the end of the procedure. The colonoscopy was performed without difficulty and the patient tolerated the procedure well. She was able to eat a sandwich without difficulty shortly after the procedure. She went home around 11 AM and started having constant, sharp right lower quadrant abdominal pain. She called Dr. Bustillo regarding her symptoms recommended she be evaluated in the emergency department. CT abdomen in the ER did not show any free air or perforation. In ER WBC was 13.2 has decreased to 7.9 today, hgb 13.8, CMP normal. This morning she continues to complain of pain in her RLQ that radiates across her lower abdomen, some mild nausea and had a low grade temp 99.9. She denies passing any flatus or BM since the colonoscopy, no rectal bleeding. Past Med Surg Social Fam HX - Past Medical History Medical history: cancer (Ovarian), hypertension, TIA Additional medical history: Chronic back pain, peripheral neuropathy Psychiatric history: no psych history - Past Surgical History Surgical History: hysterectomy, other Additional surgical history: back surgery - Social History Smoking Status: Current every day smoker Packs per day: 1 Smokeless Tobacco Status: No Alcohol use: none Drug use: none - Family History Mother Living Status: Hx Family Cardiac Disorders: Yes (HTN, Brain aneurysm) Hx Family Endocrine Disorder: Yes (DM) Hx Family Medical Disorders: Yes (Polio) Father Living Status: Hx Family Cardiac Disorders: Yes ([place], CABG) Hx Family Cancer: Yes (Lung, Colon at age 50) Review of Systems: GI: as per [place] [facility]: low grade fever, has some chills EYES: denies yellow discoloration ENT: denies pain with swallowing or difficulty swallowing CARDIO: denies chest pain, palpitations RESP: No Shortness of breath with exertion : denies change in color of urine NEURO: denies any weakness HEME: Denies any bruising MS: chronic back and joint pain DERM: denies rash or itching PSYCH: Denies history of anxiety or depression - Constitutional Vitals: Temp Pulse Resp BP Pulse Ox 98.1 F 75 16 115/68 91 02/07/18 07:03 02/07/18 07:03 02/07/18 07:03 02/07/18 07:03 02/07/18 07:03 Exam: CONSTITUTIONAL:~alert, no acute distress.~HEAD:~normocephalic.~EYES:~no jaundice.~NECK:~no obvious swelling.~HEART:~regular rate and rhythm, no murmurs. ~LUNGS:~bilateral good air entry.~ABDOMEN:~softly distended, tender to bilateral lower quadrants, no masses palpable, no organomegaly.~RECTAL EXAM:~ Deferred.~EXTREMITIES:~no clubbing, cyanosis or edema.~SKIN:~no stigmata of chronic liver disease.~NEUROLOGIC:~no obvious focal defect.~~~~ Results - Labs CBC & Chem 7: 02/07/18 05:00 02/07/18 05:00 Labs: Last Result Calcium 8.7 mg/dL (8.6-10.3) 02/07/18 05:00 Entire Visit Hgb 13.8 g/dL (11.5-15.4) D 02/07/18 05:00 Hct 41.2 % (35.3-44.9) 02/07/18 05:00 PT 12.4 Seconds (9.4-12.1) H 02/06/18 17:22 Total Bilirubin 0.5 mg/dL (0.3-1.0) 02/06/18 17:22 AST 13 Units/L (13-39) 02/06/18 17:22 ALT 13 Units/L (7-52) 02/06/18 17:22 Lipase 21 Units/L (11-82) 02/06/18 17:22 - ABG ABG results: PT/INR, D-dimer PT 12.4 Seconds (9.4-12.1) H 02/06/18 17:22 Consult Discharge Plan - Plan Instructions: Ciprofloxacin (By mouth), Metronidazole (By mouth), Ondansetron ( By mouth), Colonoscopy (DC), Acute Abdominal Pain (DC) Referrals: Paddy Estrada CNP [Primary Care Provider] - 02/18/18 2:40 pm Abad Farrell MD [Family Provider] - Prescriptions: Ondansetron HCl [Zofran] 4 mg PO Q8HR PRN #6 tab PRN Reason: Nausea And Vomiting Ciprofloxacin [Cipro] 500 mg PO BID #14 tablet metroNIDAZOLE [Flagyl] 500 mg PO TID #21 tablet Tramadol HCl [Ultram] 50 mg PO BID PRN 5 Days #10 tab PRN Reason: Moderate Pain <Dionicio Roca - Last Filed: 02/12/18 08:23> Date of Encounter: 02/07/18 - Time Spent With Patient Total time spent is greater than 50% in coordination of care (as documented) at patient's floor/unit and/or counseling patient: GI History of Present Illness - Data of Consult Requesting Physician: Adrian Yo - Consult Narrative History of present illness: Ms. Barney is a 57 year old female - Constitutional Vitals: Temp Pulse Resp BP Pulse Ox 98.5 F 82 15 122/73 91 02/08/18 06:48 02/08/18 06:48 02/08/18 06:48 02/08/18 06:48 02/08/18 06:48 Results - Labs CBC & Chem 7: 02/08/18 05:06 02/08/18 05:06 Labs: Last Result Calcium 8.8 mg/dL (8.6-10.3) 02/08/18 05:06 Entire Visit Hgb 12.6 g/dL (11.5-15.4) 02/08/18 05:06 Hct 39.0 % (35.3-44.9) 02/08/18 05:06 PT 12.4 Seconds (9.4-12.1) H 02/06/18 17:22 Total Bilirubin 0.5 mg/dL (0.3-1.0) 02/06/18 17:22 AST 13 Units/L (13-39) 02/06/18 17:22 ALT 13 Units/L (7-52) 02/06/18 17:22 Lipase 21 Units/L (11-82) 02/06/18 17:22 - ABG ABG results: PT/INR, D-dimer PT 12.4 Seconds (9.4-12.1) H 02/06/18 17:22 - Attending Attestation 57 year old female admitted for severe RLQ pain post colonoscopy and polypectomy. Reactive inflammatory changes without any evidence of perforation. CT reviewed negative for free air. Recommend broad spectrum IV antibiotics and pain management with NPO status and IV hydration. Follow closely. Should resolve completely with conservative management.
--- NOTE | 2018-02-07 14:15 | Internal Med Progress Note ---
Date of Encounter: 02/07/18 Time of Encounter: 14:13 - Assessment and plan (1) Status post colonoscopy with polypectomy Current Visit: Yes Status: Acute Assessment and plan: Patient with Postpolypectomy electrocoagulation syndrome According to the endoscopy note, a 4 mm nonbleeding sessile polyp was found in the transverse colon and a 12 mm nonbleeding sessile polyp was found in the cecum, both of which were removed with a hot snare. One hemostatic clip was successfully placed in the cecum and there was no bleeding at the end of the procedure. The colonoscopy was performed without difficulty and the patient tolerated the procedure well. CT abdomen/pelvis without contrast revealed 1.6 cm linear metallic foreign body within the cecum ; correlate with interventional history. No gross pneumoperitoneum. Patient has low-grade temperature 99.9 F, chills, leukocytosis WBC 13.2, and abdominal pain with guarding symptoms improved with intravenous fluids, bedrest, and antibiotics Continue empiric Cipro and Flagyl IV Gastroenterology following. clear liquid diet. (2) Hypertension Current Visit: No Status: Chronic Assessment and plan: Continue home Lisinopril Hydralazine ordered prn Qualifiers: Hypertension type: essential hypertension Qualified Code(s): I10 - Essential (primary) hypertension (3) Tobacco dependence Current Visit: No Status: Chronic Assessment and plan: Nicotine patch ordered Tobacco cessation discussed (4) Chronic back pain Current Visit: Yes Status: Chronic Assessment and plan: Continue home meds Qualifiers: Back pain location: low back pain Back pain laterality: bilateral Sciatica presence: with sciatica Sciatica laterality: bilateral sciatica Qualified Code(s): M54.42 - Lumbago with sciatica, left side; M54.41 - Lumbago with sciatica, right side; G89.29 - Other chronic pain (5) DVT prophylaxis Current Visit: Yes Status: Acute Assessment and plan: EPCDs - Time Spent With Patient Total time spent is greater than 50% in coordination of care (as documented) at patient's floor/unit and/or counseling patient: Greater than 35 minutes - Subjective Interval history: Reported improved abdominal pain, was able to tolerate liquid diet. - Constitutional Vitals: Temp Pulse Resp BP Pulse Ox 98.2 F 76 16 117/66 90 02/07/18 11:13 02/07/18 11:13 02/07/18 11:13 02/07/18 11:13 02/07/18 11:13 General appearance: Present: cooperative, mild distress, A&O X 3, pleasant, no acute distress, answers questions appropriately Exam: PHYSICAL EXAMINATION: GENERAL APPEARANCE: The patient is alert, oriented and in no acute distress. HEENT: Head is normocephalic. The sinuses are nontender. Pupils are equal and reactive. The nares are patent. Oropharynx clear without lesions. NECK: Supple without lymphadenopathy. HEART: Regular rate and rhythm. LUNGS: No crackles or wheezes are heard. ABDOMEN: Soft, diffusely, nondistended with hypoactive bowel sounds heard. EXTREMITIES: Without cyanosis, clubbing or edema. NEUROLOGICAL: Gross nonfocal. SKIN: Warm and dry without any rash. Internal Medicine: Result - Labs CBC & Chem 7: 02/07/18 05:00 02/07/18 05:00 Labs: Short CBC 02/07/18 Range/Units 05:00 WBC 7.9 (4.3-11.1) K/mcL Hgb 13.8 D (11.5-15.4) g/dL Hct 41.2 (35.3-44.9) % Plt Count 217 (140-400) K/mcL Neutrophils # 4.1 (1.6-8.9) K/mcL BMP 02/07/18 05:00 Sodium 143 Potassium 3.5 Chloride 113 H Carbon Dioxide 25 BUN 7 Creatinine 0.67 Glucose 85 Calcium 8.7 - ABG Interpretation ABG results: PT/INR, D-dimer PT 12.4 Seconds (9.4-12.1) H 02/06/18 17:22 Consult Discharge Plan - Plan Referrals: Paddy Estrada CNP [Primary Care Provider] - Abad Farrell MD [Family Provider] -
[2018-02-07] MEDS: Gabapentin 400 MG CAPSULE PO SCH (20:43)
[2018-02-07] MEDS: Nicotine 7 MG PATCH.TD24 TD SCH (20:44)
[2018-02-07] MEDS: Ondansetron 4 MG/2 ML VIAL IVP PRN (22:14)
[2018-02-08] MEDS: MetroNIDAZOLE 500 MG/100 ML 500 MG/100 ML BAG IVPB SCH (03:20)
[2018-02-08] MEDS: OXYCODONE Oral CONC 10 MG/0.5 ML ORAL.SYG SL PRN (03:30)
[2018-02-08] MEDS: Pantoprazole 40 MG VIAL IVP SCH (05:16)
[2018-02-08 06:29] LABS: Basophils % 0.3 %; Eosinophils # 0.1 K/mcL (0.0-0.6); Eosinophils % 0.8 %; Hemoglobin 12.6 g/dL (11.5-15.4); Immature Granulocytes % 0.3 % (0-4); Lymphocytes # 2.6 K/mcL (0.6-4.6); Lymphocytes % 27.1 %; Mean Corpuscular HGB Conc 32.3 g/dL (31.6-35.5); Mean Corpuscular Hemoglobin 28.7 pg (28.0-33.3); Mean Corpuscular Volume 88.8 fL (83.0-100.0); Mean Platelet Volume 9.7 fL (9.4-12.4); Monocytes # 0.5 K/mcL (0.0-1.3); Monocytes % 5.5 %; Neutrophils # 6.4 K/mcL (1.6-8.9); Platelet Count 210 K/mcL (140-400); Red Blood Count 4.39 M/mcL (3.82-4.97); Red Cell Distribution Width 14.2 % (11.5-14.5)
[2018-02-08 06:47] LABS: BUN/Creatinine Ratio 8 (6-26); Blood Urea Nitrogen 6 mg/dL (6-20); Calcium 8.8 mg/dL (8.6-10.3); Carbon Dioxide 27 mEq/L (23-29); Chloride 109 mEq/L (98-107); Glucose 86 mg/dL (70-105); Osmolality,Calculated 287 (280-300); Potassium 3.7 mEq/L (3.5-5.1); Sodium 140 mEq/L (136-145); eGFR For Non-African Americans > 60 (> 60)
[2018-02-08 06:49] VITALS: BP 122/73
[2018-02-08] MEDS: Gabapentin 300 MG CAPSULE PO SCH (10:12)
--- NOTE | 2018-02-08 10:31 | Discharge Summary ---
- NOTES TO OUTPATIENT PROVIDER Notes to Outpatient Provider: f/u with GI Dr. Bustillo within a week. f/u with PCP within 1-2 weeks. Date of Encounter: 02/08/18 Time of Encounter: 10:25 - Discharge Diagnosis (1) Status post colonoscopy with polypectomy Priority: Primary Status: Acute (2) Hypertension Priority: Secondary Status: Chronic Qualifiers: Hypertension type: essential hypertension Qualified Code(s): I10 - Essential (primary) hypertension (3) Tobacco dependence Priority: Secondary Status: Chronic (4) Chronic back pain Priority: Secondary Status: Chronic Qualifiers: Back pain location: low back pain Back pain laterality: bilateral Sciatica presence: with sciatica Sciatica laterality: bilateral sciatica Qualified Code(s): M54.42 - Lumbago with sciatica, left side; M54.41 - Lumbago with sciatica, right side; G89.29 - Other chronic pain (5) DVT prophylaxis Priority: Primary Status: Acute Hospital course: Ms. Barney is a 57 year old female with a past medical history of chronic back pain, TIA, hypertension, GERD, and tobacco dependence who presented complaining of abdominal pain after an outpatient colonoscopy. According to the endoscopy note, a 4 mm nonbleeding sessile polyp was found in the transverse colon and a 12 mm nonbleeding sessile polyp was found in the cecum, both of which were removed with a hot snare. One hemostatic clip was successfully placed in the cecum and there was no bleeding at the end of the procedure. The colonoscopy was performed without difficulty and the patient tolerated the procedure well. She was able to eat a sandwich without difficulty shortly after the procedure. She went home around 11 AM and started having constant, sharp right lower quadrant abdominal pain. Pain does not radiate, nothing makes it better, and abdominal palpation makes it worse. Patient reports she is unable to stand/walk secondary to pain. She called Dr. Bustillo regarding her symptoms recommended she be evaluated in the emergency department. Patient denies associated fever, chest pain, shortness of breath, nausea, vomiting, diarrhea, hematochezia, dysuria, hematuria, or home blood thinner use. At the ED, She was febrile with elevated WBC. CT abdomen/pelvis without contrast revealed 1.6 cm linear metallic foreign body within the cecum ; correlate with interventional history. No gross pneumoperitoneum. She was treated IV abx with cipro and flagyl. IVF was given. Pain was controlled with pain medication. Her symptoms were improved. She was able to tolerate oral. She will be discharged home today with continuation of oral abx as prescribed. She will f/u with PCP and GI as scheduled. Discharge discussed with: patient Time spent discussing smoking cessation with patient: more than 10 minutes - Time Spent with Patient Total time spent providing and/or coordinating discharge services: Greater than 30 minutes - Discharge Medications Prescriptions: Ondansetron HCl [Zofran] 4 mg PO Q8HR PRN #6 tab PRN Reason: Nausea And Vomiting Ciprofloxacin [Cipro] 500 mg PO BID #14 tablet metroNIDAZOLE [Flagyl] 500 mg PO TID #21 tablet Tramadol HCl [Ultram] 50 mg PO BID PRN 5 Days #10 tab PRN Reason: Moderate Pain Home Medications: Amitriptyline HCl 100 mg PO HS 02/06/18 [History] Gabapentin [Neurontin] 1,200 mg PO HS 02/06/18 [History] Gabapentin [Neurontin] 600 mg PO BID 02/06/18 [History] Lisinopril [Zestril] 20 mg PO DAILY 02/06/18 [History] Omeprazole [PriLOSEC] 40 mg PO DAILY 02/06/18 [History] Tizanidine HCl 4 mg PO BID PRN 02/06/18 [History] Ciprofloxacin [Cipro] 500 mg PO BID #14 tablet 02/08/18 [Rx] Ondansetron HCl [Zofran] 4 mg PO Q8HR PRN #6 tab 02/08/18 [Rx] Tramadol HCl [Ultram] 50 mg PO BID PRN 5 Days #10 tab 02/08/18 [Rx] metroNIDAZOLE [Flagyl] 500 mg PO TID #21 tablet 02/08/18 [Rx] Allergies/Adverse Reactions: 3 Allergy/AdvReac Type Severity Reaction Status Date / Time Penicillins Allergy Anaphylaxis Verified 07/12/17 12:22 Date of admission: 02/06/18 20:02 Primary care physician: Paddy Estrada CNP Anticipated date of discharge: 02/08/18 - Constitutional Vitals: Temp Pulse Resp BP Pulse Ox 98.5 F 82 15 122/73 91 02/08/18 06:48 02/08/18 06:48 02/08/18 06:48 02/08/18 06:48 02/08/18 06:48 General appearance: Present: cooperative, A&O X 3, pleasant, no acute distress, answers questions appropriately Exam: PHYSICAL EXAMINATION: GENERAL APPEARANCE: The patient is alert, oriented and in no acute distress. HEENT: Head is normocephalic. The sinuses are nontender. Pupils are equal and reactive. The nares are patent. Oropharynx clear without lesions. NECK: Supple without lymphadenopathy. HEART: Regular rate and rhythm. LUNGS: No crackles or wheezes are heard. ABDOMEN: Soft, mildly tender on palpation, nondistended with good bowel sounds heard. Inguinal area is normal. EXTREMITIES: Without cyanosis, clubbing or edema. NEUROLOGICAL: Gross nonfocal. SKIN: Warm and dry without any rash. - Patient Status Disposition: Home, Self-Care Condition: Fair Functional capacity at discharge: independent ambulation Overall status at discharge: patient is progressing back to baseline - Discharge Instructions Instructions: Ciprofloxacin (By mouth), Metronidazole (By mouth), Ondansetron ( By mouth), Colonoscopy (DC), Acute Abdominal Pain (DC) Follow Up With: Paddy Estrada CNP [Primary Care Provider] - 02/18/18 2:40 pm Abad Farrell MD [Family Provider] - Forms: ED Satisfaction Letter, Work/School Release - Diet and Activity Activity: increase activity as tolerated Diet: advance to your usual diet
--- NOTE | 2018-02-08 10:57 | Gastroenterology Progress Note ---
<Taty Valles - Last Filed: 02/08/18 10:55> Date of Encounter: 02/08/18 Time of Encounter: 09:00 - Assessment and plan (1) Abdominal pain Current Visit: Yes Status: Acute Assessment and plan: 57 year old female who is status post colonoscopy with removal of 12 mm polyp in the cecum. She has continued lower abdominal pain. CT was negative for perforation. Will continue IV antibiotics for colitis. Will advance to pureed diet. Advised pt if she tolerates can go home on po flagyl and cipro. Qualifiers: Abdominal location: lower abdomen, unspecified Qualified Code(s): R10.30 - Lower abdominal pain, unspecified (2) Status post colonoscopy with polypectomy Current Visit: Yes Status: Acute Assessment and plan: CT negative for perforation, WBC is improved, t-max 100. - Time Spent With Patient Total time spent is greater than 50% in coordination of care (as documented) at patient's floor/unit and/or counseling patient: - Subjective Interval history: Pt has some continued abdominal pain. She tolerated liquid diet but complained of pain afterwards. Abdomen appears more distended this morning. She reports only passing a small amount of flatus, no BM since colonoscopy. She had tmax of 100 overnight. - Constitutional Vitals: Temp Pulse Resp BP Pulse Ox 98.5 F 82 15 122/73 91 02/08/18 06:48 02/08/18 06:48 02/08/18 06:48 02/08/18 06:48 02/08/18 06:48 Exam: CONSTITUTIONAL:~alert, no acute distress.~HEAD:~normocephalic.~EYES:~no jaundice.~NECK:~no obvious swelling.~HEART:~regular rate and rhythm, no murmurs. ~LUNGS:~bilateral good air entry.~ABDOMEN:~distended, soft, very tender to b/l lower quadrants, no masses palpable, no organomegaly.~RECTAL EXAM:~Deferred.~ EXTREMITIES:~no clubbing, cyanosis or edema.~SKIN:~pallor noted, no stigmata of chronic liver disease.~NEUROLOGIC:~no obvious focal defect.~~~~ Results - Labs CBC & Chem 7: 02/08/18 05:06 02/08/18 05:06 Labs: Last Result Calcium 8.8 mg/dL (8.6-10.3) 02/08/18 05:06 Entire Visit Hgb 12.6 g/dL (11.5-15.4) 02/08/18 05:06 Hct 39.0 % (35.3-44.9) 02/08/18 05:06 PT 12.4 Seconds (9.4-12.1) H 02/06/18 17:22 Total Bilirubin 0.5 mg/dL (0.3-1.0) 02/06/18 17:22 AST 13 Units/L (13-39) 02/06/18 17:22 ALT 13 Units/L (7-52) 02/06/18 17:22 Lipase 21 Units/L (11-82) 02/06/18 17:22 - ABG ABG results: PT/INR, D-dimer PT 12.4 Seconds (9.4-12.1) H 02/06/18 17:22 Consult Discharge Plan - Plan Referrals: Paddy Estrada CNP [Primary Care Provider] - 02/18/18 2:40 pm Abad Farrell MD [Family Provider] - Prescriptions: Ondansetron HCl [Zofran] 4 mg PO Q8HR PRN #6 tab PRN Reason: Nausea And Vomiting Ciprofloxacin [Cipro] 500 mg PO BID #14 tablet metroNIDAZOLE [Flagyl] 500 mg PO TID #21 tablet Tramadol HCl [Ultram] 50 mg PO BID PRN 5 Days #10 tab PRN Reason: Moderate Pain <Dionicio Roca - Last Filed: 02/08/18 11:38> Date of Encounter: 02/08/18 - Time Spent With Patient Total time spent is greater than 50% in coordination of care (as documented) at patient's floor/unit and/or counseling patient: - Constitutional Vitals: Temp Pulse Resp BP Pulse Ox 98.5 F 82 15 122/73 91 02/08/18 06:48 02/08/18 06:48 02/08/18 06:48 02/08/18 06:48 02/08/18 06:48 Results - Labs CBC & Chem 7: 02/08/18 05:06 02/08/18 05:06 Labs: Last Result Calcium 8.8 mg/dL (8.6-10.3) 02/08/18 05:06 Entire Visit Hgb 12.6 g/dL (11.5-15.4) 02/08/18 05:06 Hct 39.0 % (35.3-44.9) 02/08/18 05:06 PT 12.4 Seconds (9.4-12.1) H 02/06/18 17:22 Total Bilirubin 0.5 mg/dL (0.3-1.0) 02/06/18 17:22 AST 13 Units/L (13-39) 02/06/18 17:22 ALT 13 Units/L (7-52) 02/06/18 17:22 Lipase 21 Units/L (11-82) 02/06/18 17:22 - ABG ABG results: PT/INR, D-dimer PT 12.4 Seconds (9.4-12.1) H 02/06/18 17:22 - Attending Attestation Patient definately feeling better. Just a little bloated but, had been drinking [place] clear soda earlier today. Has not had a BM yet has been passing flatus. Tolerated clear liquids well. Will plan soft diet (asked patient to take only a spoonful first and see how she felt and then take one at a time and pause between spoonfuls). If, tolerated well agree can be discharged on oral Cipro and Flagyl and follow up as outpatient next week with Dr Bustillo.
[2018-02-08] MEDS ORDERED: metroNIDAZOLE 500 MG TABLET PO SCH (15:00)
== END 2018-02-08 13:38 | disposition home or self-care (01) ==
LOC: EMEROO 16:10 → 3BNU 16:10
PROVIDERS: ADMIT Family Medicine; ATTEND Family Medicine